=== PATIENT | male | born 1945 | race Caucasian/White ===

== ENCOUNTER 2017-04-21 08:00 | Outpatient (CLI) | payer MEDICARE, OTHER ==
[2015-09-26 12:39] VITALS: BP 169/70
[2017-04-21 08:44] LABS: MEAN CORPUSCULAR HEMOGLOBIN 33.8 pg (28.0-34.0); MEAN CORPUSCULAR VOLUME 98.3 fl (80.0-100.0)
[2017-04-21 09:01] LABS: eGFR (African) > 60; eGFR (Non-African) > 60
== END 2017-04-21 08:02 ==
LOC: LAB 08:00
PROVIDERS: ATTEND Internal Medicine Cardiovascular Disease
DX: R06.02 Shortness of breath (principal); R09.89 Other specified symptoms and signs involving the circulatory and respiratory systems; R00.2 Palpitations; R07.2 Precordial pain; I48.3 Typical atrial flutter; E78.5 Hyperlipidemia, unspecified
CPT/HCPCS: 36415; 80053; 80061; 83880; 84443; 85027

== ENCOUNTER 2018-06-21 08:12 | Outpatient (CLI) | payer MEDICARE, OTHER ==
[2015-09-26 12:39] VITALS: BP 169/70
[2018-06-21 09:09] LABS: eGFR (Non-African) > 60
== END 2018-06-21 08:13 ==
LOC: LAB 08:12
PROVIDERS: ATTEND Family Medicine
DX: N40.1 Benign prostatic hyperplasia with lower urinary tract symptoms (principal); Z51.81 Encounter for therapeutic drug level monitoring; E78.00 Pure hypercholesterolemia, unspecified
CPT/HCPCS: 36415; 80053; 80061; 84153

== ENCOUNTER 2018-07-30 08:41 | Day surgery (SDC) | payer MEDICARE, OTHER ==
[2015-09-26 12:39] VITALS: BP 169/70
[~2018-07-30 08:41] MED LIST: SALINE FLUSH 10 ML DISP.SYRIN IVF ONE
[2018-07-30] MEDS ORDERED: LIDOCAINE HCL/PF 2% 100 MG/5 ML VIAL IJ ONE (12:00)
[2018-07-30] MEDS ORDERED: PROPOFOL 200 MG/20 ML VIAL IV ONE (12:00)
[2018-07-30] MEDS ORDERED: LACTATED RINGERS 1,000 ML IV ONE (12:00)
--- NOTE | 2018-08-01 09:22 | GI Report ---
REFERRING PHYSICIAN: Dr. Mor Izaguirre COLLECTION OFFICER: Cory Wayne MD PROCEDURE MEDICATION: Propofol as per anesthesia. INDICATIONS: This is a 73-year-old man who had polyps in the past. I do not have that last colonoscopy or pathology. It was done elsewhere. He denies any interval change in stools or bleeding. He denies a family history of colorectal cancer. He is referred for surveillance and follow up on an adenomatous polyp. PROCEDURE PERFORMED: Colonoscopy. PROCEDURE: An Olympus video colonoscope was advanced to the rectum and slowly advanced to the cecum. In the sigmoid, there was mild diverticular disease. A slightly atonic redundant colon. It did take some nurse compression to reach the base of the cecum. We did lavage the colon in several areas to improve visibility. There was a little dark fluid but no stool. The terminal ileum looked normal. Appendiceal orifice was normal. On slow withdrawal, the cecum, ascending colon, and transverse colon with no obvious intraluminal lesions noted. The descending colon and sigmoid, a few mild diverticula. Retroflexion of the rectum was normal. Patient tolerated the procedure well. FINDINGS: 1. Mild diverticular disease of the sigmoid colon. 2. No polyps seen this time. RECOMMENDATIONS: 1. A high-fiber diet. 2. Consider re-looking at his colon in 5 years for surveillance. 3. Follow up with Dr. Izaguirre. cc: Dr. Mor TATE
== END 2018-08-06 08:42 ==
LOC: OPSURG 08:41
PROVIDERS: ATTEND Internal Medicine Gastroenterology
DX: Z86.010 Personal history of colon polyps (principal); K57.30 Diverticulosis of large intestine without perforation or abscess without bleeding; Z80.0 Family history of malignant neoplasm of digestive organs
CPT/HCPCS: 45378; S1016

== ENCOUNTER 2018-08-29 12:18 | Outpatient (CLI) | payer MEDICARE, OTHER ==
[2015-09-26 12:39] VITALS: BP 169/70
== END 2018-08-29 12:20 ==
LOC: LABRHC 12:18
PROVIDERS: ATTEND Family Medicine
DX: N39.0 Urinary tract infection, site not specified (principal); R31.9 Hematuria, unspecified; B95.2 Enterococcus as the cause of diseases classified elsewhere; Z16.29 Resistance to other single specified antibiotic
CPT/HCPCS: 87086; 87186

== ENCOUNTER 2018-10-10 12:55 | Outpatient (CLI) | payer MEDICARE, OTHER ==
[2015-09-26 12:39] VITALS: BP 169/70
== END 2018-10-10 12:56 ==
LOC: LABRHC 12:55
PROVIDERS: ATTEND Nurse Practitioner Family
DX: N39.0 Urinary tract infection, site not specified (principal)
CPT/HCPCS: 87086; 87186